=== PATIENT | female | born 1960 | race African-American/Black ===

== ENCOUNTER 2018-12-31 14:57 | Inpatient (IN) | payer BC ==
[2018-12-31 17:12] VITALS: BMI 27.1
--- NOTE | 2018-12-31 18:22 | HP ---
CIWA Score Nausea/Vomitin-No Nausea/No Vomiting Muscle Tremors: 4-Moderate,w/Arms Extend Anxiety: 3 Agitation: 4-Moderately Restless Paroxysmal Sweats: 3 Orientation: 0-Oriented Tacttile Disturbances: 0-None Auditory Disturbances: 0-None Visual Disturbances: 0-None Headache: 0-None Present CIWA-Ar Total Score: 14 - Admission Criteria OASAS Guidelines: Admission for Medically Managed Detox: Requires at least one of the followin. CIWA greater than 12 2. Seizures within the past 24 hours 3. Delirium tremens within the past 24 hours 4. Hallucinations within the past 24 hours 5. Acute intervention needed for co occurring medical disorder 6. Acute intervention needed for co occurring psychiatric disorder 7. Severe withdrawal that cannot be handled at a lower level of care (continued vomiting, continued diarrhea, abnormal vital signs) requiring intravenous medication and/or fluids 8. Admission ROS S - [facility] Chief Complaint: I was clean for a while and now I need to get my life back. Allergies/Adverse Reactions: Allergies Allergy/AdvReac Type Severity Reaction Status Date / Time chlordiazepoxide HCl Allergy Intermediate Rash Verified 12/31/18 17:02 [From Librium] History of Present Illness: Pt is a 58yr old female with a history of alcohol dependence seeking detox for treatment. Exam Limitations: No Limitations - Ebola screening Have you traveled outside of the country in the last 21 days: No Have you had contact with anyone from an Ebola affected area: No Have you been sick,other than usual withdrawal symptoms: No Do you have a fever: No - Review of Systems Constitutional: Changes in sleep EENT: reports: No Symptoms Reported Respiratory: reports: No Symptoms reported Cardiac: reports: No Symptoms Reported GI: reports: Nausea, Poor Appetite, Poor Fluid Intake : reports: No Symptoms Reported Musculoskeletal: reports: Back Pain, Joint Pain, Muscle Pain Integumentary: reports: Flushing, Sweating Neuro: reports: Headache, Tingling, Tremors Endocrine: reports: Excessive Sweating, Flushing, Intolerance to Cold, Intolerance to Heat Hematology: reports: No Symptoms Reported Psychiatric: reports: Judgement Intact, Mood/Affect Appropiate, Orientated x3, Agitated, Anxious Other Systems: Reviewed and Negative Patient History - Patient Medical History Hx Anemia: No Hx Asthma: No Hx Chronic Obstructive Pulmonary Disease (COPD): No Hx Cancer: No Hx Cardiac Disorders: No Hx Congestive Heart Failure: No Hx Hypertension: No Hx Hypercholesterolemia: No Hx Pacemaker: No HX Cerebrovascular Accident: No Hx Seizures: No Hx Dementia: No Hx Diabetes: No Hx Gastrointestinal Disorders: No Hx Liver Disease: No Hx Genitourinary Disorders: No Hx Sexually Transmitted Disorders: No Hx Renal Disease (ESRD): No Hx Thyroid Disease: No Hx Human Immunodeficiency Virus (HIV): No (negative last 2017) Hx Hepatitis C: Yes (TREATED) Hx Depression: Yes Hx Suicide Attempt: No Hx Bipolar Disorder: Yes (taking lexapro/zaprazadone) Hx Schizophrenia: No - Patient Surgical History Past Surgical History: Yes Hx Neurologic Surgery: No Hx Cataract Extraction: No Hx Cardiac Surgery: No Hx Lung Surgery: No Hx Breast Surgery: No Hx Breast Biopsy: No Hx Abdominal Surgery: No Hx Appendectomy: No Hx Cholecystectomy: No Hx Genitourinary Surgery: No Hx Section: No Hx Orthopedic Surgery: Yes (09/2014 right ankle rods/pins wears soft boot) Hx Hysterectomy: No Anesthesia Reaction: No - PPD History Previous Implant?: Yes Documented Results: Negative w/o proof PPD to be Administered?: Yes - Reproductive History Patient is a Female of Child Bearing Age (11 -55 yrs old): No Last Menstrual Period: 07/17/15 Patient : No - Smoking Cessation Smoking history: Current every day smoker Have you smoked in the past 12 months: Yes Aproximately how many cigarettes per day: 10 Cigars Per Day: 0 Hx Chewing Tobacco Use: No Initiated information on smoking cessation: Yes 'Breaking Loose' booklet given: 12/31/18 - Substance & Tx. History Hx Alcohol Use: Yes Hx Substance Use: Yes Substance Use Type: Alcohol, Cocaine Hx Substance Use Treatment: Yes (last detox 2017 [facility]) - Substances abused Alcohol Substance route: Oral Frequency: Daily Amount used: 2 6 packs of beer Age of first use: 16 Date of last use: 12/31/18 Cocaine Substance route: Smoking Frequency: 3-6 times per week Amount used: $100 Age of first use: 26 Date of last use: 12/31/18 Family Disease History - Family Disease History Family Disease History: Heart Disease: Mother (HTN ) Admission Physical Exam BHS - Vital Signs Vital Signs: Vital Signs - 24 hr 12/31/18 16:55 Temperature 97.8 F Pulse Rate 72 Respiratory 18 Rate Blood Pressure 132/79 - Physical General Appearance: Yes: Appropriately Dressed, Moderate Distress, Obese, Tremorous, Irritable, Sweating, Anxious HEENTM: Yes: Normal Voice, Nasal Congestion, Rhinorrhea Respiratory: Yes: Lungs Clear, Normal Breath Sounds, No Respiratory Distress Neck: Yes: No masses,lesions,Nodules Breast: Yes: Within Normal Limits Cardiology: Yes: Regular Rhythm, Regular Rate, S1, S2 Abdominal: Yes: Normal Bowel Sounds, Non Tender, Soft Genitourinary: Yes: Within Normal Limits Back: Yes: Normal Inspection Musculoskeletal: Yes: Back pain, Muscle Pain Extremities: Yes: Normal Capillary Refill, Non-Tender, Tremors Neurological: Yes: Fully Oriented, Alert, Normal Response Integumentary: Yes: Diaphoresis Lymphatic: Yes: Within Normal Limits - Diagnostic (1) Alcohol dependence with uncomplicated withdrawal Current Visit: Yes Status: Chronic (2) Arthritis Current Visit: Yes Status: Chronic (3) Bipolar II disorder Current Visit: No Status: Chronic Comment: . (4) Cannabis dependence Current Visit: Yes Status: Chronic Comment: . (5) Cocaine dependence Current Visit: Yes Status: Chronic Qualifiers: Substance use status: uncomplicated Qualified Code(s): F14.20 - Cocaine dependence, uncomplicated Comment: . (6) Crack cocaine use Current Visit: Yes Status: Chronic (7) Hepatitis C Current Visit: No Status: Chronic Qualifiers: Viral hepatitis chronicity: chronic Hepatic coma status: without hepatic coma Qualified Code(s): B18.2 - Chronic viral hepatitis C Comment: . (8) Nicotine dependence Current Visit: Yes Status: Chronic Qualifiers: Nicotine product type: cigarettes Substance use status: uncomplicated Qualified Code(s): F17.210 - Nicotine dependence, cigarettes, uncomplicated Comment: . (9) Post traumatic stress disorder (PTSD) Current Visit: No Status: Chronic Comment: . (10) Bipolar 1 disorder Current Visit: No Status: Suspected Cleared for Admission S - Detox or Rehab [facility] Level of Care: Medically Managed Detox Regimen/Protocol: Valium Breathalyzer - Breathalyzer Breathalyzer: 0 POC Urine test - Test device test lot number: [id number] Expiration date: 01/14/20 - Control test control: Yes - Result Urine Test Results: Negative - NO line present Urine Drug Screen - Test Device Lot number: [id number] Expiration date: 08/15/20 - Control Is test valid?: Yes - Results Drug screen NEGATIVE: No Urine drug screen results: THC-Marijuana, PROSPER-Cocaine Inpatient Rehab Admission - Rehab Decision to Admit Inpatient rehab admission?: No
[2018-12-31] MEDS ORDERED: hydrOXYzine PAMOATE 25 MG CAPSULE (FP) PO PRN (18:30)
[2018-12-31] MEDS ORDERED: ONDANSETRON *ODT* 4 MG TABLET SL PRN (18:30)
[2018-12-31] MEDS ORDERED: MELATONIN 5 MG TABLETS PO PRN (18:30)
[2018-12-31] MEDS ORDERED: MENTHOL/PHENOL 1 EACH UD MM PRN (18:30)
[2018-12-31] MEDS ORDERED: MAG HYDROX/AL HYDROX/SIMETH 30 ML UNIT-DOSE CUP PO PRN (18:30)
[2018-12-31] MEDS ORDERED: BISMUTH SUBSALICYLATE 524 MG/30 ML UD PO PRN (18:30)
[2018-12-31] MEDS ORDERED: MAGNESIUM HYDROX 2400MG/30ML ORAL SUSPENSION 30 ML CUP PO PRN (18:30)
[2018-12-31] MEDS ORDERED: IBUPROFEN 400 MG TABLET (FP) PO PRN ×2 (18:30)
[2018-12-31] MEDS ORDERED: diazePAM 5 MG TABLET PO PRN (18:30)
[2018-12-31] MEDS ORDERED: ACETAMINOPHEN 325 MG TABLET (FP) PO PRN ×2 (18:30)
[2018-12-31] MEDS ORDERED: MAGNESIUM CITRATE 300 ML BOTTLE PO PRN (18:30)
[2018-12-31] MEDS ORDERED: diazePAM 5 MG TABLET PO ONE (19:00)
[2018-12-31] MEDS: THIAMINE HCL 100 MG TABLET (FP) PO SCH (22:35)
[2018-12-31] MEDS: diazePAM 5 MG TABLET PO SCH (22:35)
[2019-01-01] MEDS: diazePAM 5 MG TABLET PO SCH ×3 (05:25→22:10)
[2019-01-01] MEDS: PRENATAL VITAMINS W/ FOLIC ACID TABLET (FP) PO SCH (10:18)
[2019-01-01] MEDS: NICOTINE 21 MG/24 HOURS TOPICAL PATCH TD SCH (10:18)
[2019-01-01 10:53] LABS: HEMATOCRIT 38.4 % (32.4-45.2); MCH 29.9 pg (25.7-33.7); MCHC 33.8 g/dl (32.0-36.0); MEAN CELL VOLUME 88.5 fl (80-96); MEAN PLT VOLUME 8.9 fl (7.5-11.1); PLATELET COUNT 245 K/MM3 (134-434); RBC 4.34 M/mm3 (3.60-5.2); RDW 13.9 % (11.6-15.6)
[2019-01-01 10:59] LABS: ALBUMIN 3.4 g/dl (3.4-5.0); ALK PHOS 100 U/L (45-117); ANION GAP 5 MMOL/L (8-16); BILIRUBIN,TOTAL 0.4 mg/dL (0.2-1); BLOOD UREA NITROGEN 18 mg/dL (7-18); CALCIUM 8.7 mg/dL (8.5-10.1); CHLORIDE 108 mmol/L (98-107); CO2 29 mmol/L (21-32); CREATININE 1.1 mg/dL (0.55-1.3); GLUCOSE,RANDOM 102 mg/dL (74-106); POTASSIUM 4.1 mmol/L (3.5-5.1); SGOT/AST 16 U/L (15-37); SGPT/ALT 15 U/L (13-61); SODIUM 141 mmol/L (136-145); TOT PROT 6.8 g/dl (6.4-8.2)
--- NOTE | 2019-01-01 11:14 | PN ---
[facility] CIWA - CIWA Score Nausea/Vomitin-Mild Nausea/No Vomiting Muscle Tremors: 2 Anxiety: 2 Agitation: 2 Paroxysmal Sweats: 1-Minimal Palms Moist Orientation: 3-Disoriented Date>2 days Tacttile Disturbances: 0-None Auditory Disturbances: 0-None Visual Disturbances: 0-None Headache: 0-None Present CIWA-Ar Total Score: 11 BHS Progress Note (SOAP) Subjective: report long history of bipolar is taking psychotropic medication patient is alert denies suicidal ideation Objective: 01/01/19 11:13 Vital Signs Temperature 98.1 F 01/01/19 09:46 Pulse Rate 76 01/01/19 09:46 Respiratory Rate 18 01/01/19 09:46 Blood Pressure 129/86 01/01/19 09:46 O2 Sat by Pulse Oximetry (%) Laboratory Last Values WBC 4.0 K/mm3 (4.0-10.0) 01/01/19 07:00 RBC 4.34 M/mm3 (3.60-5.2) 01/01/19 07:00 Hgb 13.0 GM/dL (10.7-15.3) 01/01/19 07:00 Hct 38.4 % (32.4-45.2) 01/01/19 07:00 MCV 88.5 fl (80-96) 01/01/19 07:00 MCH 29.9 pg (25.7-33.7) 01/01/19 07:00 MCHC 33.8 g/dl (32.0-36.0) 01/01/19 07:00 RDW 13.9 % (11.6-15.6) 01/01/19 07:00 Plt Count 245 K/MM3 (134-434) 01/01/19 07:00 MPV 8.9 fl (7.5-11.1) 01/01/19 07:00 Sodium 141 mmol/L (136-145) 01/01/19 07:00 Potassium 4.1 mmol/L (3.5-5.1) 01/01/19 07:00 Chloride 108 mmol/L (98-107) H 01/01/19 07:00 Carbon Dioxide 29 mmol/L (21-32) 01/01/19 07:00 Anion Gap 5 MMOL/L (8-16) L 01/01/19 07:00 BUN 18 mg/dL (7-18) 01/01/19 07:00 Creatinine 1.1 mg/dL (0.55-1.3) 01/01/19 07:00 Creat Clearance w eGFR 51.20 (>60) 01/01/19 07:00 Random Glucose 102 mg/dL (74-106) 01/01/19 07:00 Calcium 8.7 mg/dL (8.5-10.1) 01/01/19 07:00 Total Bilirubin 0.4 mg/dL (0.2-1) 01/01/19 07:00 AST 16 U/L (15-37) 01/01/19 07:00 ALT 15 U/L (13-61) 01/01/19 07:00 Alkaline Phosphatase 100 U/L (45-117) 01/01/19 07:00 Total Protein 6.8 g/dl (6.4-8.2) 01/01/19 07:00 Albumin 3.4 g/dl (3.4-5.0) 01/01/19 07:00 lab noted Assessment: 01/01/19 11:13 withdrawal sx 01/01/19 11:13 bipolar Plan: continue detox psychiatric referral
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
[2019-01-01] MEDS: MIRTAZAPINE 15 MG TABLET (FP) PO SCH (22:10)
[2019-01-01] MEDS: THIAMINE HCL 100 MG TABLET (FP) PO SCH (22:10)
[2019-01-02] MEDS: NICOTINE 21 MG/24 HOURS TOPICAL PATCH TD SCH (10:51)
[2019-01-02] MEDS: PRENATAL VITAMINS W/ FOLIC ACID TABLET (FP) PO SCH (10:51)
[2019-01-02] MEDS: diazePAM 5 MG TABLET PO SCH ×2 (10:51→22:10)
--- NOTE | 2019-01-02 14:51 | PN ---
S CIWA - CIWA Score Nausea/Vomitin-Mild Nausea/No Vomiting Muscle Tremors: 1-None Visible, but [place] Anxiety: 1-Mildly Anxious Agitation: 7-Pacing/Thrashing Paroxysmal Sweats: No Perspiration Orientation: 0-Oriented Tacttile Disturbances: 0-None Auditory Disturbances: 0-None Visual Disturbances: 0-None Headache: 0-None Present CIWA-Ar Total Score: 10 BHS Progress Note (SOAP) Subjective: pt has no complaints on alcohol detox protocol O: Vital Signs - 24 hr 01/01/19 01/01/19 01/02/19 18:16 21:38 00:30 Temperature 97.9 F 97.2 F L Pulse Rate 104 H 75 Respiratory 18 18 18 Rate Blood Pressure 142/94 116/72 01/02/19 01/02/19 01/02/19 03:30 06:12 06:30 Temperature 96.9 F L Pulse Rate 76 Respiratory 18 18 18 Rate Blood Pressure 128/83 01/02/19 09:30 Temperature 97.7 F Pulse Rate 113 H Respiratory 18 Rate Blood Pressure 131/94 Laboratory Tests 01/01/19 01/01/19 01/01/19 07:00 07:00 07:00 WBC 4.0 RBC 4.34 Hgb 13.0 Hct 38.4 MCV 88.5 MCH 29.9 MCHC 33.8 RDW 13.9 Plt Count 245 MPV 8.9 Sodium 141 Potassium 4.1 Chloride 108 H Carbon Dioxide 29 Anion Gap 5 L BUN 18 Creatinine 1.1 Creat Clearance w eGFR 51.20 Random Glucose 102 Calcium 8.7 Total Bilirubin 0.4 AST 16 ALT 15 Alkaline Phosphatase 100 Total Protein 6.8 Albumin 3.4 RPR Titer Nonreactive labs and VS WNL a/p: continue alcohol detox protocol- pt doing well
[2019-01-02] MEDS: THIAMINE HCL 100 MG TABLET (FP) PO SCH (22:09)
[2019-01-02] MEDS: MIRTAZAPINE 15 MG TABLET (FP) PO SCH (22:09)
[2019-01-03] MEDS ORDERED: diazePAM 5 MG TABLET PO SCH (06:00)
[2019-01-03 09:26] VITALS: BP 124/83; PULSE 86; TEMP 98.6
[2019-01-03] MEDS: NICOTINE 21 MG/24 HOURS TOPICAL PATCH TD SCH (09:35)
[2019-01-03] MEDS: PRENATAL VITAMINS W/ FOLIC ACID TABLET (FP) PO SCH (09:35)
--- NOTE | 2019-01-03 17:36 | DS ---
[facility] Detox Discharge Summary Admission Date: 12/31/18 Discharge Date: 01/03/19 - History Present History: Alcohol Dependence, Cannabis Dependence, Cocaine Dependence Additional Comments: PATIENT GOING TO [facility] ([place], [place]). PATIENT WAS DISCHARGED FROM DETOX UNIT IN STABLE MEDICAL CONDITION. Pertinent Past History: Hep C (Treated), Depression, Bipolar II Disorder, Nicotine Dependence, History Of Post-Traumatic Stress Disorder (P.T.S.D.), Arthritis. - Physical Exam Results Vital Signs: Vital Signs Temperature 98.6 F 01/03/19 09:26 Pulse Rate 86 01/03/19 09:26 Respiratory Rate 18 01/03/19 09:26 Blood Pressure 124/83 01/03/19 09:26 O2 Sat by Pulse Oximetry (%) Pertinent Admission Physical Exam Findings: WITHDRAWAL SYMPTOMS. Laboratory Tests 01/01/19 01/01/19 01/01/19 07:00 07:00 07:00 WBC 4.0 RBC 4.34 Hgb 13.0 Hct 38.4 MCV 88.5 MCH 29.9 MCHC 33.8 RDW 13.9 Plt Count 245 MPV 8.9 Sodium 141 Potassium 4.1 Chloride 108 H Carbon Dioxide 29 Anion Gap 5 L BUN 18 Creatinine 1.1 Creat Clearance w eGFR 51.20 Random Glucose 102 Calcium 8.7 Total Bilirubin 0.4 AST 16 ALT 15 Alkaline Phosphatase 100 Total Protein 6.8 Albumin 3.4 RPR Titer Nonreactive LABS NOTED. - Treatment Hospital Course: Detox Protocol Followed, Detoxed Safely, Responded well, Discharged Condition Good, Rehab Referral Accepted Patient has Accepted a Rehab Referral to: [facility] ([place], [place]). - Medication Discharge Medications: Ambulatory Orders Ziprasidone [Geodon] 40 mg PO BID #60 capsule 11/22/16 Duloxetine HCl [Cymbalta -] 80 mg PO BID 12/31/18 - Diagnosis (1) Alcohol dependence with uncomplicated withdrawal Status: Acute (2) Arthritis Status: Chronic (3) Bipolar II disorder Status: Chronic (4) Cannabis dependence Status: Chronic (5) Cocaine dependence Status: Chronic Qualifiers: Substance use status: in withdrawal Qualified Code(s): F14.23 - Cocaine dependence with withdrawal (6) Crack cocaine use Status: Chronic (7) Hepatitis C Status: Chronic Qualifiers: Viral hepatitis chronicity: chronic Hepatic coma status: without hepatic coma Qualified Code(s): B18.2 - Chronic viral hepatitis C (8) Nicotine dependence Status: Chronic Qualifiers: Nicotine product type: cigarettes Substance use status: uncomplicated Qualified Code(s): F17.210 - Nicotine dependence, cigarettes, uncomplicated (9) Post traumatic stress disorder (PTSD) Status: Chronic - AMA Did Patient Leave Against Medical Advice: No
== END 2019-01-03 12:38 | disposition home or self-care (01) | DRG 774 ==
LOC: YASAS 14:57 → Y3N 18:23
PROVIDERS: ADMIT Surgery; ATTEND Surgery
PROC: HZ2ZZZZ Detoxification Services for Substance Abuse Treatment (ICD-10-PCS; principal; 2018-12-31)
DX: F10.230 Alcohol dependence with withdrawal, uncomplicated (principal); F14.20 Cocaine dependence, uncomplicated; F12.20 Cannabis dependence, uncomplicated; F17.210 Nicotine dependence, cigarettes, uncomplicated; F43.10 Post-traumatic stress disorder, unspecified; F31.81 Bipolar II disorder; M19.90 Unspecified osteoarthritis, unspecified site; B18.2 Chronic viral hepatitis C; E66.9 Obesity, unspecified; Z68.27 Body mass index [BMI] 27.0-27.9, adult; Z88.8 Allergy status to other drugs, medicaments and biological substances
CPT/HCPCS: 36415; 80053; 85027; 86593